=== PATIENT | female | born 1955 | race Caucasian/White ===

== ENCOUNTER 2021-01-05 08:25 | Day surgery (SDC) | payer OTHER ==
[2021-01-05] MEDS ORDERED: Lidocaine 2% 5 ML SDV INJECT ONE (08:26)
[2021-01-05] MEDS ORDERED: Propofol 200 MG/20 ML SDV IV ONE (08:26)
[2021-01-05] MEDS ORDERED: Dexamethasone 4 MG/ML 5 ML MDV IVPUSH ONE (08:26)
[2021-01-05] MEDS ORDERED: Sodium Chloride 0.9% 10 ML Syringe FLUSH PRN (08:30)
[2021-01-05] MEDS ORDERED: Lactated Ringers 1,000 ML IV SCH (08:30)
--- NOTE | 2021-01-05 10:27 | PCM.OPNOTE ---
- General Post-Op/Procedure Note Date of Surgery/Procedure: 01/05/21 Operative Procedure(s): c scope with random biopsies cold forceps Findings: normal appearing colonic mucosa Pre Op Diagnosis: hx of diarrhea. hx of c diff in past Post-Op Diagnosis: nl exam Anesthesia Technique: MAC Primary Surgeon: Bro Lozoya Anesthesia Provider: Hugo Selby Pathology: random colon biopsies Complications: None Condition: Good Free Text/Narrative:: see dictation #[id number]
--- NOTE | 2021-01-05 12:15 | OR ---
DATE OF OPERATION: 01/05/2021 SURGEON: Bro Lozoya MD PROCEDURE PERFORMED: Colonoscopy with random colon biopsies. PREOPERATIVE DIAGNOSES: Personal history of diarrhea and Clostridium difficile colitis in the past. POSTOPERATIVE DIAGNOSIS: Normal exam. INDICATIONS FOR PROCEDURE: This is a 65-year-old white female who was referred. In the past, she has had C diff colitis. This apparently was treated, but she notes that she has had persistently loose stools. She was offered and accepted a colonoscopy. DESCRIPTION OF OPERATION: After an excellent IV sedation was administered, digital rectal exam was performed. No marked abnormality was noted. Flexible colonoscope was inserted and advanced to the cecum without difficulty. On reaching the cecum, attempts to intubate the terminal ileum were not successful. We therefore slowly withdrew the scope and evaluated the mucosa. The following findings were noted. Ascending colon, unremarkable, random biopsies were taken. Transverse colon, unremarkable, random biopsies were taken. Descending colon, unremarkable, random biopsies were taken. Sigmoid and rectum, unremarkable, random biopsies were taken. The patient tolerated the procedure well. Results will be sent to her via letter. /[id number] /MODL
== END 2021-01-05 10:55 | disposition home or self-care (01) ==
LOC: FB.SDS 08:25
PROVIDERS: ATTEND Surgery
DX: K57.30 Diverticulosis of large intestine without perforation or abscess without bleeding (principal); Z87.19 Personal history of other diseases of the digestive system; Z86.16 Personal history of COVID-19; Z79.899 Other long term (current) drug therapy; Z88.0 Allergy status to penicillin; Z98.890 Other specified postprocedural states
CPT/HCPCS: 00811-QZ; 88305; J1100; J2704; J7120

== ENCOUNTER 2021-05-05 09:28 | Emergency (ER) | payer OTHER ==
[2021-05-05] MEDS ORDERED: Alum Hydroxide/Mag Hydroxide 30 ML, Lidocaine 2% 15 ML PO ONE ×2 (09:46)
[2021-05-05] MEDS ORDERED: Aspirin 81 MG Tab.Chew PO ONE (09:50)
--- NOTE | 2021-05-05 09:50 | EDM.PDOC ---
ED HPI GENERAL MEDICAL PROBLEM - General Stated Complaint: CHEST PAIN Time Seen by Provider: 05/05/21 09:30 Source of Information: Reports: Patient, Family History Limitations: Reports: No Limitations - History of Present Illness INITIAL COMMENTS - FREE TEXT/NARRATIVE: c/o epigastric and b/l shoulder and chest and upper back pain onset of sxs 8:15, over 1 hr [employer], comes in with got up 6:30a as usual, took shower, ate pop tart and juice for bfast, watered plants went on treadmill which she does daily, after 5 min she stopped as she was having chest/shoulder/back/abd discomfort, slight nausea and went to bathroom and moved bowels (3rd time today, soft), says she was sweaty, no vomiting pain 07/24 at home, 03/24 here has stress test with cardiology at [facility] in 6d, ordered by Dr Stoner usually walks 45 minutes on treadmill daily, sometimes walks on incline but only able to go 20 min then has been getting CP daily for past month, occurs at rest altho gets worse with exertion, last 5 min, occurred more frequently in past week, 5-6x/day MEDS: only Rx med is Singulair for "allergies" (no h/o asthma), many supplements PMH: had COVID 1y ago, not hospitalized PSH: appy, hys, shoulder pin, reports scar tissue removed from bile duct 15y ago, reports 1 ft colon removed d/t "scar tissue" SH: never smoked, no children, from COVID 1y ago, has home in [facility], staying with male friend locally now who is with here, going back to [place] at end of May, 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 [employer] ROS: "my cholesterol runs a little high," not taking meds for it, has had EKG 1w ago, 1m ago and 1y ago (2 at [facility], 1 in [facility]) FH: CAD in family Chest Pain Score (Numeric/FACES): 6 Abdominal Pain Score (Numeric/FACES): 7 - Related Data Allergies Allergy/AdvReac Type Severity Reaction Status Date / Time Penicillins Allergy Other Verified 01/05/21 08:58 Home Meds: Home Meds Ascorbic Acid [Vitamin C] 1,000 mg PO DAILY 01/04/21 [History] Cholecalciferol (Vitamin D3) [Vitamin D3] 20 mcg PO DAILY 01/04/21 [History] Cranberry Fruit Extract [Cranberry] 1 tab PO DAILY 01/04/21 [History] L.acidoph,Paracasei, B.lactis [Probiotic] 1,000 mg PO DAILY 01/04/21 [History] Psyllium [Metamucil SF] 1 tsp PO DAILY 01/04/21 [History] Saccharomyces Boulardii [Florastor] 500 mg PO BID 01/04/21 [History] Vit A/Vit C/Vit E/Zinc/Copper [Preservision] 1 tab PO DAILY 01/04/21 [History] Zinc Oxide 80 mg PO DAILY 01/04/21 [History] Past Medical History HEENT History: Reports: Cataract Cardiovascular History: Reports: None Respiratory History: Reports: None Gastrointestinal History: Reports: None Genitourinary History: Reports: None BINDING END STITCHER History: Reports: Other (See Below) Other BINDING END STITCHER History: SYMPTOMATIC MENOPAUSAL Musculoskeletal History: Reports: Other (See Below) Other Musculoskeletal History: BILATERAL CARPAL TUNNEL Neurological History: Reports: None Psychiatric History: Reports: None Endocrine/Metabolic History: Reports: None Hematologic History: Reports: None Immunologic History: Reports: None Oncologic (Cancer) History: Reports: None Dermatologic History: Reports: None - Past Surgical History HEENT Surgical History: Reports: Cataract Surgery Cardiovascular Surgical History: Reports: None Respiratory Surgical History: Reports: None GI Surgical History: Reports: None Female Surgical History: Reports: Hysterectomy, Other (See Below) Other Female Surgeries/Procedures: LAPAROTOMY Endocrine Surgical History: Reports: None Neurological Surgical History: Reports: None Musculoskeletal Surgical History: Reports: Carpal Tunnel, Other (See Below) Other Musculoskeletal Surgeries/Procedures:: RIGHT SHOULDER PINNING SURGERY Oncologic Surgical History: Reports: None Dermatological Surgical History: Reports: None Social & Family History - Caffeine Use Caffeine Use: Reports: Soda ED ROS GENERAL - Review of Systems Review Of Systems: See Below Constitutional: Reports: No Symptoms HEENT: Reports: No Symptoms Respiratory: Reports: No Symptoms Cardiovascular: Reports: Chest Pain Endocrine: Reports: No Symptoms GI/Abdominal: Reports: No Symptoms : Reports: No Symptoms Musculoskeletal: Reports: Shoulder Pain, Back Pain Skin: Reports: No Symptoms Neurological: Reports: No Symptoms Psychiatric: Reports: No Symptoms Hematologic/Lymphatic: Reports: No Symptoms Immunologic: Reports: No Symptoms ED EXAM, GENERAL - Physical Exam Exam: See Below Exam Limited By: No Limitations General Appearance: Alert, WD/WN, Other (anxious, pleasant, cooperative) Eye Exam: Bilateral Eye: EOMI, PERRL Ears: Hearing Grossly Normal Nose: Normal Inspection, Normal Mucosa Throat/Mouth: Normal Inspection, Normal Lips, Normal Teeth, Normal Voice, No Airway Compromise Head: Atraumatic, Normocephalic Neck: Normal Inspection, Supple, Non-Tender, Full Range of Motion Respiratory/Chest: No Respiratory Distress, Lungs Clear, Normal Breath Sounds, No Accessory Muscle Use, Other (1+ tender at costochondral margin b/l, R>L) Cardiovascular: Regular Rate, Rhythm, No Edema, No Murmur GI/Abdominal: Normal Bowel Sounds, Soft, No Organomegaly, No Distention, Other (1-2+ epigastric tender, NT elsewhere, good BS, no HSM) Back Exam: Normal Inspection, Full Range of Motion Extremities: Normal Inspection, Normal Range of Motion, Non-Tender, No Pedal Edema Neurological: Alert, Oriented, CN II-XII Intact, Normal Cognition, No Motor/Sensory Deficits Psychiatric: Normal Affect, Normal Mood Skin Exam: Warm, Dry, Intact, Normal Color, No Rash Lymphatic: No Adenopathy #1 Interpretation EKG Date: 05/05/21 Time: 09:31 Rhythm: NSR EKG Interpretation Comments: c/o 03-08-21 and 04-28-21, no acute changes, NSR 63, no ST change Course - Vital Signs Last Recorded V/S: Last Vital Signs Temp 36.8 C 05/05/21 09:30 Pulse 84 05/05/21 10:49 Resp 18 05/05/21 09:30 BP 146/86 H 05/05/21 10:49 Pulse Ox 100 05/05/21 09:30 - Orders/Labs/Meds Orders: Active Orders 24 hr Category Date Time Status EKG Documentation Completion [RC] ASDIRECTED Care 05/05/21 09:48 Ordered EKG Documentation Completion [RC] ASDIRECTED Care 05/05/21 10:26 Ordered Chest 1V Frontal [CR] Stat Exams 05/05/21 09:47 Ordered UA W/MICROSCOPIC [URIN] Stat Lab 05/05/21 09:47 Ordered Heparin Sodium/0.45% NaCl [Heparin 25,000 Units in 1/2 Med 05/05/21 10:45 Ordered NS 500 ML] 25,000 units in 500 ml IV TITRATE EKG 12 Lead [EK] Routine Ther 05/05/21 09:47 Ordered EKG 12 Lead [EK] Routine Ther 05/05/21 10:26 Ordered Medication Orders Heparin Sodium/Sodium Chloride (Heparin 25,000 Units In 1/2 Ns 500 Ml) 25,000 units in 500 mls @ 15.241 mls/hr IV TITRATE VANI; Protocol Labs: Laboratory Tests 05/05/21 05/05/21 05/05/21 Range/Units 09:47 10:00 10:00 WBC 5.8 (3.0-10.3) x10-3/uL RBC 4.37 (3.60-5.20) x10(6)uL Hgb 13.3 (11.4-15.5) g/dL Hct 39.0 (34.2-48.2) % MCV 89.4 (76.7-100.5) fL MCH 30.4 (23.9-33.9) pg MCHC 34.0 (31.9-34.8) g/dL RDW 13.2 (12.3-16.5) % Plt Count 174 (151-488) x10(3)uL MPV 8.2 (7.1-12.4) fL Neut % (Auto) 63.9 (30.8-76.2) % Lymph % (Auto) 26.5 (18.4-52.1) % [place] % (Auto) 5.7 (4.4-15.7) % Eos % (Auto) 2.9 (0.6-8.1) % Baso % (Auto) 1.0 (0.2-1.5) % Neut # (Auto) 3.7 (1.5-6.3) x10-3/uL Lymph # (Auto) 1.5 (1.0-4.4) x10-3/uL [place] # (Auto) 0.3 (0.3-1.0) x10-3/uL Eos # (Auto) 0.2 (0.0-0.8) x10-3/uL Baso # (Auto) 0.1 (0.0-0.1) x10-3/uL PT 10.0 (9.0-11.1) sec INR 0.93 L (1.00-1.24) APTT (24.4-33.2) SECONDS D-Dimer, Quantitative 0.49 (0.0-0.59) mg/LFEU Sodium 147 H (135-145) mmol/L Potassium 4.2 (3.5-5.3) mmol/L Chloride 106 (100-110) mmol/L Carbon Dioxide 26 (21-32) mmol/L BUN 17 (7-18) mg/dL Creatinine 0.8 (0.55-1.02) mg/dL Est Cr Clr Drug Dosing TNP Estimated GFR (MDRD) > 60 (>60) BUN/Creatinine Ratio 21.3 H (9-20) Glucose 131 H (80-116) mg/dL Calcium 9.5 (8.6-10.2) mg/dL Total Bilirubin 0.6 (0.1-1.3) mg/dL AST 23 (5-25) IU/L ALT 37 H (12-36) U/L Alkaline Phosphatase 80 (56-112) IU/L Troponin I (4.0-60.3) pg/mL C-Reactive Protein (0.5-0.9) mg/dL Total Protein 7.2 (6.0-8.0) g/dL Albumin 3.9 (3.2-4.6) g/dL Globulin 3.3 g/dL Albumin/Globulin Ratio 1.2 Lipase (73-393) U/L 05/05/21 05/05/21 Range/Units 10:00 10:00 WBC (3.0-10.3) x10-3/uL RBC (3.60-5.20) x10(6)uL Hgb (11.4-15.5) g/dL Hct (34.2-48.2) % MCV (76.7-100.5) fL MCH (23.9-33.9) pg MCHC (31.9-34.8) g/dL RDW (12.3-16.5) % Plt Count (151-488) x10(3)uL MPV (7.1-12.4) fL Neut % (Auto) (30.8-76.2) % Lymph % (Auto) (18.4-52.1) % [place] % (Auto) (4.4-15.7) % Eos % (Auto) (0.6-8.1) % Baso % (Auto) (0.2-1.5) % Neut # (Auto) (1.5-6.3) x10-3/uL Lymph # (Auto) (1.0-4.4) x10-3/uL [place] # (Auto) (0.3-1.0) x10-3/uL Eos # (Auto) (0.0-0.8) x10-3/uL Baso # (Auto) (0.0-0.1) x10-3/uL PT (9.0-11.1) sec INR (1.00-1.24) APTT 23.5 L (24.4-33.2) SECONDS D-Dimer, Quantitative (0.0-0.59) mg/LFEU Sodium (135-145) mmol/L Potassium (3.5-5.3) mmol/L Chloride (100-110) mmol/L Carbon Dioxide (21-32) mmol/L BUN (7-18) mg/dL Creatinine (0.55-1.02) mg/dL Est Cr Clr Drug Dosing Estimated GFR (MDRD) (>60) BUN/Creatinine Ratio (9-20) Glucose (80-116) mg/dL Calcium (8.6-10.2) mg/dL Total Bilirubin (0.1-1.3) mg/dL AST (5-25) IU/L ALT (12-36) U/L Alkaline Phosphatase (56-112) IU/L Troponin I < 4.0 L (4.0-60.3) pg/mL C-Reactive Protein 1.1 H (0.5-0.9) mg/dL Total Protein (6.0-8.0) g/dL Albumin (3.2-4.6) g/dL Globulin g/dL Albumin/Globulin Ratio Lipase 167 (73-393) U/L Meds: Medications Generic Name Dose Route Start Last Admin Trade Name Freq PRN Reason Stop Dose Admin Heparin Sodium/Sodium Chloride 25,000 units in 500 mls @ 15.241 mls/hr 05/05/21 10:45 Heparin 25,000 Units In 10/16 Ns 500 Ml IV TITRATE VANI Protocol 12 UNITS/KG/HR Discontinued Medications Generic Name Dose Route Start Last Admin Trade Name Bobbi PRN Reason Stop Dose Admin Aspirin 324 mg 05/05/21 09:50 05/05/21 10:00 Aspirin 81 Mg Tab.Chew PO 05/05/21 09:51 324 mg ONETIME ONE Administration Al Hydroxide/Mg Hydroxide 30 0 ml 05/05/21 09:46 05/05/21 09:54 ml/ Lidocaine HCl 15 ml PO 05/05/21 09:47 45 ml ONETIME ONE Administration Heparin Sodium (Porcine) 4,000 units 05/05/21 10:32 Heparin Sodium 5,000 Units/Ml Vial IVPUSH 05/05/21 10:33 ONETIME ONE Metoprolol Tartrate 5 mg 05/05/21 10:30 05/05/21 10:49 Metoprolol Tartrate 5 Mg/5 Ml Sdv IVPUSH 05/05/21 10:31 5 mg ONETIME ONE Administration Nitroglycerin 0.4 mg 05/05/21 10:09 05/05/21 10:09 Nitroglycerin 0.4 Mg Tab.[facility] 05/05/21 10:10 0.4 mg ONETIME ONE Administration Nitroglycerin 0.4 mg 05/05/21 10:17 05/05/21 10:17 Nitroglycerin 0.4 Mg Tab.[facility] 05/05/21 10:18 0.4 mg ONETIME ONE Administration Nitroglycerin 0.4 mg 05/05/21 10:30 05/05/21 10:30 Nitroglycerin 0.4 Mg Tab.[facility] 05/05/21 10:31 0.4 mg ONETIME ONE Administration - Re-Assessments/Exams Free Text/Narrative Re-Assessment/Exam: 05/05/21 10:17 no change in pain after GI cocktail, still 610, still with 1-2+ tender in epigastrium 5 min after NTG SL x 1 pain dec'd 610 to 310, says "I am feeling better", BP dec'd 138/78 after NTG CxR 1v is neg on prelim ED read, normal mediastinal silhouette, mod DJD with spurring of t-spine 05/05/21 10:26 CP 2/10 after 2nd NTG 05/05/21 10:46 CP 0/10 after 3rd NTG, still has same epigastric pain and tenderness, still has same shoulder and upper back pain 2nd EKG is unchanged from previous, still no acute changes trop neg 05/05/21 10:51 evaluation suggestive of angina (no CP after NTG x 3, no change with GI cocktail, elevated BP with pain, damp skin on arrival) 05/05/21 11:30 d/w Dr Pearson at 11:05, he accepted pt in transfer to [facility], meds discussed, he recommended heparin and NTG patch since CP came back, he deferred on Brillant or Plavix HR dec'd low 60s after metoprolol 5 mg IV x 1 pain 0/10 for 30 some minutes, now says pain is 7/10 altho appears anxious as much as anything, skin dry, BP 130s/80s will give MS 2 mg IV and Ativan 0.5 mg IV, 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 bed 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, EMS notified Departure - Departure Time of Disposition: 11:36 Disposition: DC/Tfer to [facility] Reason for Transfer *Q: Other (cardiology evaluation) Condition: Good Clinical Impression: Chest pain, Hypertensive urgency, Epigastric abdominal pain, Chest wall tenderness, Shoulder pain, Upper back pain Sepsis Event Note (ED) - Focused Exam Vital Signs: Vital Signs Temp Pulse Pulse Resp BP BP Pulse Ox 05/05/21 10:49 84 146/86 H 05/05/21 10:30 149/88 H 05/05/21 10:17 139/82 05/05/21 10:09 178/104 H 05/05/21 09:30 36.8 C 71 18 206/98 H 100 - My Orders Last 24 Hours: My Active Orders 05/05/21 09:47 Chest 1V Frontal [CR] Stat UA W/MICROSCOPIC [URIN] Stat EKG 12 Lead [EK] Routine 05/05/21 09:48 EKG Documentation Completion [RC] ASDIRECTED 05/05/21 10:26 EKG Documentation Completion [RC] ASDIRECTED EKG 12 Lead [EK] Routine 05/05/21 10:45 Heparin Sodium/0.45% NaCl [Heparin 25,000 Units in 1/2 NS 500 ML] 25,000 units in 500 ml IV TITRATE - Assessment/Plan Last 24 Hours: My Active Orders 05/05/21 09:47 Chest 1V Frontal [CR] Stat UA W/MICROSCOPIC [URIN] Stat EKG 12 Lead [EK] Routine 05/05/21 09:48 EKG Documentation Completion [RC] ASDIRECTED 05/05/21 10:26 EKG Documentation Completion [RC] ASDIRECTED EKG 12 Lead [EK] Routine 05/05/21 10:45 Heparin Sodium/0.45% NaCl [Heparin 25,000 Units in 1/2 NS 500 ML] 25,000 units in 500 ml IV TITRATE
[2021-05-05] MEDS ORDERED: Nitroglycerin 0.4 MG Tab.SL SL ONE ×3 (10:09→10:30)
[2021-05-05] MEDS ORDERED: Metoprolol Tartrate 5 MG/5 ML SDV IVPUSH ONE (10:30)
[2021-05-05] MEDS ORDERED: Heparin Sodium 5,000 Units/ML Vial IVPUSH ONE (10:32)
[2021-05-05] MEDS ORDERED: Heparin Sodium/0.45% NaCl 25,000 UNITS/500 ML BAG IV SCH (10:45)
--- NOTE | 2021-05-05 10:57 | CR ---
INDICATION: Chest pain. CHEST ONE VIEW: AP portable upright view of the chest 05/05/21 was compared with 04/28/21 clinic examination. The heart remains normal in size and shape. The aorta is somewhat tortuous. Overlying EKG leads are noted. Markings appear similar to the previous study allowing for changes in positioning and inspiration, without a definite active infiltrate or effusion identified. IMPRESSION: No acute process. MTDD
[2021-05-05] MEDS ORDERED: Morphine 2 MG/ML SYRINGE IVPUSH ONE (11:01)
[2021-05-05] MEDS ORDERED: LORazepam 2 MG/ML SDV IVPUSH ONE (11:06)
[2021-05-05] MEDS ORDERED: Nitroglycerin 2% Oint 1 GM UD Packet TOP ONE (11:07)
== END 2021-05-05 12:10 ==
LOC: FB.ED 09:28
DX: M54.6 Pain in thoracic spine (principal); R10.13 Epigastric pain; R07.89 Other chest pain; M25.511 Pain in right shoulder; M25.512 Pain in left shoulder; I16.0 Hypertensive urgency; Z88.0 Allergy status to penicillin; Z79.899 Other long term (current) drug therapy
CPT/HCPCS: 36415; 71045; 80053; 81001; 83690; 84484; 85025; 85379; 85610; 85730; 86140; 93005; 96374; 96375; 96376; 99285; A9270; J1644; J2060; J2270; J3490

== ENCOUNTER 2022-07-03 06:47 | Day surgery (SDC) | payer MEDICARE ==
[~2022-07-03 06:47] MED LIST: Lactated Ringers 1,000 ML IV SCH; Sodium Chloride 0.9% 10 ML Syringe FLUSH PRN
[2022-07-03] MEDS ORDERED: Propofol 200 MG/20 ML SDV IV ONE (06:48)
[2022-07-03] MEDS ORDERED: Lidocaine 2% 100 MG/5 ML Syringe IVPUSH ONE (06:48)
== END 2022-07-03 09:20 | disposition home or self-care (01) ==
LOC: FB.SDS 06:47
PROVIDERS: ATTEND Surgery
DX: K29.50 Unspecified chronic gastritis without bleeding (principal); K29.80 Duodenitis without bleeding; K21.9 Gastro-esophageal reflux disease without esophagitis; I10 Essential (primary) hypertension; E78.5 Hyperlipidemia, unspecified; Z79.899 Other long term (current) drug therapy; Z88.0 Allergy status to penicillin; Z91.041 Radiographic dye allergy status; Z79.82 Long term (current) use of aspirin; Z95.1 Presence of aortocoronary bypass graft; Z98.890 Other specified postprocedural states; Z90.710 Acquired absence of both cervix and uterus; Z86.16 Personal history of COVID-19
CPT/HCPCS: 00731; 43239; 88305; 88342; J2704; J7120